=== PATIENT | male | born 1950 | race Caucasian/White ===

== ENCOUNTER 2020-06-16 06:43 | Outpatient (CLI) | payer BC, SELFPAY ==
--- NOTE | ~2020-06-16 | XR_ITS ---
XR hip BI 2V w AP pelvis 06/16/2020 07:23 Indication: Bilateral hip pain. Procedure: AP pelvis and 2 views each hip Comparison: No prior studies for comparison. Findings: There is mild osteoarthritis of the hips. No fracture or traumatic malalignment. Pelvic rin gs intact. Sacral foramen are symmetric. No significant soft tissue abnormality. No radiopaque foreig n bodies. Impression: 1: Mild symmetric osteoarthritis of the hips. Reviewed, dictated and finalized at location B. Impression: 1: Mild symmetric osteoarthritis of the hips.
[2020-06-16 07:11] LABS: Basophils Percent Auto 0.7 % (0.2-1.2); Eosinophils Absolute Auto 0.2 K/mm3 (0-0.3); Eosinophils Percent Auto 2.5 % (0-4.4); Hemoglobin 14.5 g/dL (14.0-18.0); Immature Granulocyte Absolute 0.04 K/mm3 (0.00-0.031); Immature Granulocyte Percent A 0.7 % (0-0.5); Lymphocytes Absolute Auto 1.35 K/mm3 (0.9-3.2); Lymphocytes Percent Auto 22.1 % (18.3-44.2); Mean Corpuscular HGB Conc 33.7 g/dl (32-36); Mean Corpuscular Hemoglobin 30.9 pg (26-34); Mean Corpuscular Volume 91.5 fl (80-100); Mean Platelet Volume 10.1 fl (7.4-10.4); Monocytes Absolute Auto 0.6 K/mm3 (0.1-0.6); Monocytes Percent Auto 10.3 % (2.6-8.5); Neutrophils Absolute Auto 3.9 K/mm3 (1.3-6.7); Neutrophils Percent Auto 63.7 % (45.5-73.1); Platelet Count Result 190 k/mm3 (150-375); Red Cell Distribution Width 12.4 % (11.5-14.5); White Blood Count 6.1 K/mm3 (4.5-10.0)
[2020-06-16 07:24] LABS: Alanine Aminotransferase 25 U/L (4-50); Alkaline Phosphatase 91 U/L (38-126); Anion Gap 4 mmol/L (8-16); Aspartate Amino Transferase 24 U/L (17-59); Bilirubin,Total 0.4 mg/dL (0.2-1.3); Blood Urea Nitrogen 20 mg/dL (9-20); Carbon Dioxide 28 mmol/L (22-30); Chloride 103 mmol/L (98-107); Cholesterol 108 mg/dL (0-200); Estimated Glomerular Filt Rate > 60; Glucose 105 mg/dL (75-110); HDL Direct 43 mg/dL; Magnesium 2.1 mg/dL (1.6-2.3); Potassium 5.1 mmol/L (3.4-5.0); Sodium 135 mmol/L (137-145); Triglycerides 50 mg/dL (<150)
[2020-06-16 07:37] LABS: LDL Cholesterol Direct 51 mg/dL
[2020-06-16 07:54] LABS: Prostate Specific Antigen 2.6 ng/mL (< OR = 4.0)
== END 2020-06-16 06:44 | disposition home or self-care (01) ==
PROVIDERS: PCP Internal Medicine; Visit Provider Internal Medicine
DX: Z12.5 Encounter for screening for malignant neoplasm of prostate (principal); M25.559 Pain in unspecified hip; I10 Essential (primary) hypertension; I25.10 Atherosclerotic heart disease of native coronary artery without angina pectoris; R53.83 Other fatigue; M16.0 Bilateral primary osteoarthritis of hip
CPT/HCPCS: 36415; 73521; 80053; 80061; 83735; 84153; 84443; 85025; G0103

== ENCOUNTER 2022-02-07 06:48 | Outpatient (CLI) | payer BC, SELFPAY ==
[2022-02-07 07:30] LABS: Hematocrit 44.3 % (42.0-52.0); Hemoglobin 15.2 g/dL (14.0-18.0); Mean Corpuscular HGB Conc 34.3 g/dl (32-36); Mean Corpuscular Volume 90.2 fl (80-100); Mean Platelet Volume 10.9 fl (7.4-10.4); Platelet Count Result 181 k/mm3 (150-375); Red Blood Count 4.91 M/mm3 (4.6-6.20); Red Cell Distribution Width 12.6 % (11.5-14.5); White Blood Count 4.9 K/mm3 (4.5-10.0)
[2022-02-07 14:55] LABS: Alanine Aminotransferase 18 U/L (6-50); Albumin Level 4.8 g/dL (3.5-5.1); Alkaline Phosphatase 103 U/L (38-126); Anion Gap 11 mmol/L (8-16); Aspartate Amino Transferase 25 U/L (17-59); Bilirubin,Total 0.1 mg/dL (0.2-1.3); Blood Urea Nitrogen 24 mg/dL (9-20); Calcium 9.4 mg/dL (8.4-10.2); Carbon Dioxide 21 mmol/L (22-30); Chloride 115 mmol/L (98-107); Cholesterol 151 mg/dL (0-200); Estimated Glomerular Filt Rate > 60; Glucose 108 mg/dL (65-110); HDL Direct 48 mg/dL; Potassium 5.1 mmol/L (3.4-5.0); Sodium 147 mmol/L (137-145); Triglycerides 68 mg/dL (<150)
[2022-02-07 15:30] LABS: LDL Cholesterol Direct 73 mg/dL
[2022-02-07 15:50] LABS: Prostate Specific Antigen 2.5 ng/mL (< OR = 4.0)
[2022-02-07 23:13] LABS: Folic Acid 7.6 ng/mL (2.76->20)
== END 2022-02-07 06:49 | disposition home or self-care (01) ==
LOC: ANHLAB 06:50
PROVIDERS: PCP Internal Medicine; Visit Provider Physician Assistant
DX: R53.83 Other fatigue (principal); E78.5 Hyperlipidemia, unspecified; Z12.5 Encounter for screening for malignant neoplasm of prostate
CPT/HCPCS: 36415; 80053; 80061; 82607; 82746; 84153; 84443; 85027; G0103